=== PATIENT | male | born 1995 | race Two or more races ===

== ENCOUNTER 2022-04-22 09:14 | Emergency (ER) | payer MEDICAID, OTHER ==
[~2022-04-22] VITALS: Ht 167.6 cm; Wt 65.0 kg
[2022-04-22 10:06] VITALS: BP 126/80
[2022-04-22 10:14] LABS: Basophils # (auto) 0 10 ^3/uL (0-0.2); Basophils % (auto) 0.2 % (0.0-2.0); Eosinophils # (auto) 0 10 ^3/uL (0-0.8); Eosinophils % (auto) 0.5 % (0.0-7.0); Hematocrit 47.1 % (41.0-53.0); Hemoglobin 16.5 g/dL (13.5-17.5); Lymphocytes # (auto) 2.7 10 ^3/uL (0.4-5.4); Mean Corpuscular Hemoglobin 29.6 pg (28.0-32.0); Mean Corpuscular Volume 84.6 fL (80.0-100.0); Monocytes # (auto) 0.6 10 ^3/uL (0-1.3); Monocytes % (auto) 6.1 % (0.0-12.0); Neutrophils # (auto) 6.6 10 ^3/uL (1.6-8.6); Neutrophils % (auto) 66.2 % (37.0-80.0); Nucleated Red Blood Cells % 0.1 %; Red Blood Cells 5.57 10^6/uL (4.5-5.90); Red Cell Distribution Width 12.6 % (11.8-14.3)
[2022-04-22 10:29] LABS: BUN/Creatinine Ratio 14.5; Calcium 9.7 mg/dL (8.5-10.1); Potassium 4.3 mmol/L (3.5-5.1)
[2022-04-22] MEDS ORDERED: ONDANSETRON ODT 4 MG TAB PO ONE (11:00)
[2022-04-22] MEDS ORDERED: HYDR50CA PO (11:09)
== END 2022-04-22 11:15 | disposition home or self-care (01) ==
LOC: ER 09:14
DX: F41.1 Generalized anxiety disorder (principal)
CPT/HCPCS: 36415; 80048; 84484; 85025; 99283; Q0162